=== PATIENT | male | born 1990 | race Caucasian/White ===

== ENCOUNTER 2018-11-22 21:31 | Emergency (ER) | payer BC ==
[~2018-11-22] VITALS: Ht 182.9 cm; Wt 65.8 kg
[~2018-11-22 21:31] MED LIST: LIDOCAINE1 EACH TRANSDERM; PROPRANOLOL 1010 M1 PO
[2018-11-22] MEDS ORDERED: LIDOCAINE1 EACH TRANSDERM (23:44)
[2018-11-23 00:10] VITALS: BP 109/78
== END 2018-11-23 00:10 | disposition home or self-care (01) ==
LOC: ER 21:31
DX: S20.211A Contusion of right front wall of thorax, initial encounter (principal); Z87.891 Personal history of nicotine dependence; Z95.5 Presence of coronary angioplasty implant and graft; W11.XXXA Fall on and from ladder, initial encounter; Y92.89 Other specified places as the place of occurrence of the external cause; Y93.89 Activity, other specified; Y99.8 Other external cause status